=== PATIENT | female | born 1940 | race Caucasian/White ===

== ENCOUNTER 2021-07-15 11:52 | Emergency (ER) | payer OTHER, MEDICARE, SELFPAY ==
--- NOTE | ~2021-07-15 | XR_ITS ---
EXAMINATION: XR tibia fibula RT 2V DATE: 07/15/2021 12:55 INDICATION: Right lower leg laceration and pain. TECHNIQUE: 2 views of right tibia and fibula were obtained. COMPARISON: None. FINDINGS: Bone alignment is normal. No acute fracture. There is an old healed fracture deformity of l ateral tibial plateau. There is diffuse osteopenia. 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 There is a laceration in the medial lower leg. There is soft tissue swelling of the lower leg. IMPRESSION: 1. No acute fracture or radiopaque foreign body. Reviewed, dictated and finalized at location B. [employer]
[2021-07-15 12:18] VITALS: BP 154/80; PULSE 52; RESP 20; TEMP 36.4; O2SAT 100
--- NOTE | 2021-07-15 12:38 | ED.FALL ---
HPI - Fall General Chief Complaint: Fall Stated Complaint: fell and sliced rt leg Time Seen by Provider: 07/15/21 12:38 Source: patient and family Limitations: no limitations Related Data Home Medications Medication Instructions Recorded Confirmed aspirin 81 mg tablet,delayed 81 mg PO DAILY 06/10/21 07/15/21 release atenolol 25 mg tablet 25 mg PO DAILY 06/10/21 07/15/21 atorvastatin 20 mg tablet 20 mg PO HS 06/10/21 07/15/21 levothyroxine 112 mcg capsule 112 mcg PO DAILY 06/10/21 07/15/21 lisinopril 10 mg tablet 10 mg PO DAILY 06/10/21 07/15/21 warfarin 2 mg tablet 2 mg PO DAILY 06/10/21 07/15/21 bisacodyl 10 mg RECTAL DAILY PRN 07/15/21 07/15/21 haloperidol 1 mg PO QID 07/15/21 07/15/21 hydrocodone-acetaminophen [[place]] 1 tablet PO Q8H PRN 07/15/21 07/15/21 lorazepam 1 mg PO QID PRN 07/15/21 07/15/21 prochlorperazine maleate 10 mg PO Q6H PRN 07/15/21 07/15/21 [Compazine] sennosides [senna] 8.6 mg PO HS 07/15/21 07/15/21 Allergies Allergy/AdvReac Type Severity Reaction Status Date / Time No Known Allergies Allergy Unverified 07/15/21 12:24 [facility] Past Medical History Medical History (Updated 07/15/21 @ 15:46 by Andrea Zuluaga MD) Atrial fibrillation [place] esophagitis Cholecystectomy planned Constipation GERD (gastroesophageal reflux disease) Renal cancer Vitamin D deficiency Surgical History Surgical History (Updated 06/10/21 @ 09:24 by Dahlia Palomares CMA) H/O: hysterectomy History of nephrectomy History of salpingectomy Social History Social History (Updated 06/10/21 @ 09:25 by Dahlia Palomares CMA) Smoking status: Former smoker Tobacco type: cigarettes Alcohol intake: current Alcohol use details: occasional Substance use: never Course Vital Signs Vital signs: Vital Signs Temperature 36.4 C 07/15/21 12:18 Pulse Rate 52 L 07/15/21 12:18 Respiratory Rate 20 07/15/21 12:18 Blood Pressure 154/80 H 07/15/21 12:18 Pulse Oximetry 100 07/15/21 12:18 Temperature 36.4 C 07/15/21 12:18 Pulse Rate 52 L 07/15/21 12:18 Respiratory Rate 20 07/15/21 12:18 Blood Pressure 154/80 H 07/15/21 12:18 Pulse Oximetry 100 07/15/21 12:18 Procedures Laceration Laceration 1: Date: 07/15/21 Time: 14:51 Site: lower extremity Side (If applicable): right Size (cm): 10 Description: irregular and other (tissue loss) Depth: simple, single layer Local Anesthetic: lidocaine 1% and with epi Amount of anesthesia used (mL): 15 Pre-repair: wound explored and irrigated extensively (250 cc) ====== Skin Level ====== Skin layer closed with: nylon Size (cm): 4-0 Number of sutures: 12 Technique: simple, interrupted and other (Sutures on the medial aspect of the wound were used to approximate skin incompletely.) ====== Subcutaneous Layer ====== ====== Muscle Layer ====== ====== Tendon Layer ====== Discharge Plan Discharge Clinical Impression: Fall from ground level Laceration of leg Qualifiers: Encounter type: initial encounter Laterality: right Qualified Code(s): S81.811A - Laceration without foreign body, right lower leg, initial encounter Patient Disposition: Home, Self-Care Condition: Stable Instructions: Laceration (ED), Fall Prevention for Older Adults (ED) Additional Instructions: Change the dressings twice a day. Keep the leg elevated to control throbbing and pain. Follow up with her doctor in the next 5-7 days. Twelve sutures to come out in 14 days. Prescriptions: No Action sennosides [senna] 8.6 mg Tablet 8.6 mg PO HS RF: 0 hydrocodone-acetaminophen [[place]] 5-325 mg Tablet 1 tablet PO Q8H PRN (Reason: Pain) RF: 0 haloperidol 1 mg Tablet 1 mg PO QID RF: 0 prochlorperazine maleate [Compazine] 10 mg Tablet 10 mg PO Q6H PRN (Reason: Nausea) RF: 0 bisacodyl 10 mg Suppository 10 mg R
[2021-07-15] MEDS: TETANUS,DIPHTHERIA,AC PERTUSSIS ADULT 0.5 ML (ADACEL) IM (13:09)
[2021-07-15] MEDS: NEOMYCIN/POLYMYXIN/BACITRACIN OINTMENT 15 GM TUBE 1 APPLIC TOPICAL (16:22)
[2021-07-15 16:23] VITALS: BP 180/60; PULSE 60; RESP 18; TEMP 36.6; O2SAT 95
== END 2021-07-15 16:39 | disposition home or self-care (01) ==
PROVIDERS: Emergency Provider Emergency Medicine; PCP Family Medicine
DX: S81.811A Laceration without foreign body, right lower leg, initial encounter (principal); W18.30XA Fall on same level, unspecified, initial encounter
CPT/HCPCS: 12004; 73590; 90471; 90715; 99282; 99283; A9270